=== PATIENT | female | born 1955 | race Caucasian/White ===

== ENCOUNTER 2025-03-17 19:29 | Observation (INO) | payer MEDICARE ==
[~2025-03-17] VITALS: Ht 170.2 cm; Wt 80.2 kg
[~2025-03-17 19:29] MED LIST: Lactated Ringer's 1,000 ML IV SCH
[2025-03-17 21:06] LABS: BASOPHILS ABSOLUTE AUTO 0.03 K/mm3 (0.00-0.23); BASOPHILS PERCENT AUTO 0 % (0-2); EOSINOPHILS PERCENT AUTO 0 % (0-6); Hematocrit 34.7 % (33.0-51.0); Hemoglobin 11.8 g/dL (11.5-16.0); IMMATURE GRAN ABSOLUTE AUTO 0.08 K/mm3 (0.00-0.10); IMMATURE GRAN PERCENT AUTO 0 % (0-1); LYMPHOCYTES ABSOLUTE AUTO 1.04 K/mm3 (0.84-5.20); LYMPHOCYTES PERCENT AUTO 6 % (21-46); MONOCYTES ABSOLUTE AUTO 0.91 K/mm3 (0.16-1.47); MONOCYTES PERCENT AUTO 5 % (4-13); Mean Corpuscular HGB 32.8 pg (26.0-34.0); Mean Corpuscular Volume 96 fL (80-100); Mean Platelet Volume 11.1 fL (9.1-12.4); NEUTROPHILS ABSOLUTE AUTO 15.86 K/mm3 (1.96-9.15); NEUTROPHILS PERCENT AUTO 89 % (41-73); Platelet Count 172 K/mm3 (150-400); RDW Coefficient Variation 12.8 % (11.7-14.2); RDW Standard Deviation 45.1 fL (35.1-46.3); White Blood Cell Count 17.92 K/mm3 (4.00-11.30)
[2025-03-17 21:26] LABS: Albumin, Blood 3.4 g/dL (3.4-5.0); Albumin/Globulin Ratio 1.1 (0.8-1.8); Bilirubin, Total 0.5 mg/dL (0.1-1.0); Bun/Creatinine Ratio 25.2 (12.0-20.0); Calcium, Blood 8.8 mg/dL (8.5-10.1); Creatinine, Blood 0.63 mg/dL (0.40-1.00); Globulin, Blood 3.2 g/dL (2.2-4.0); Potassium, Blood 3.4 mmol/L (3.5-5.5); Total Protein, Blood 6.6 g/dL (6.4-8.2)
[2025-03-17] MEDS ORDERED: Ciprofloxacin 200MG/100ML 100 ML IV ONE (22:30)
[2025-03-17] MEDS ORDERED: MetroNIDAZOLE 500MG/NS 100 ml 100 ML IV ONE (22:30)
[2025-03-17] MEDS ORDERED: Ketorolac Tromethamine 15mg Vial IV ONE (22:40)
[2025-03-17] MEDS ORDERED: Ciprofloxacin 400MG/D5 200ML 200 ML IV STA (22:43)
[2025-03-17] MEDS ORDERED: Ondansetron HCl 2 MG / ML 2ML Vial IV ONE (23:20)
[2025-03-17] MEDS ORDERED: Naloxone HCl 0.4MG / ML 1ML Vial IV PRN (23:45)
[2025-03-17] MEDS ORDERED: Acetaminophen 325 MG TABLET PO PRN (23:45)
[2025-03-17] MEDS ORDERED: Morphine Sulfate 4 MG/1 ML Injection IV PRN (23:45)
[2025-03-17] MEDS ORDERED: Ondansetron 4 MG TAB PO PRN (23:45)
[2025-03-17] MEDS ORDERED: OxyCODONE HCL 5 MG TAB PO PRN (23:45)
[2025-03-18] VITALS (12 sets, daily range): BP systolic 96–116; BP diastolic 59–74
[2025-03-18 00:15] LABS: Magnesium, Blood 1.7 mg/dL (1.6-2.4)
[2025-03-18] MEDS ORDERED: Potassium Chloride 40 MEQ in NS 250 ML IV ONE (00:25)
[2025-03-18] MEDS ORDERED: Ampicillin Sod/Sulbactam Sod 3 GM in NS 100 ML IV SCH (00:32)
[2025-03-18] MEDS ORDERED: NS 1,000 ML IV SCH (00:40)
[2025-03-18] MEDS ORDERED: RIZATRIPTAN1014 PO (01:31)
--- NOTE | 2025-03-18 02:00 | NUR ---
ADMISSION TO UNIT PT ARRIVED VIA GURNEY WITH ED STAFF. PT AMBULATED TO BED WITH STANDBY ASSIST FOR CORDS. PT ORIENTED TO UNIT AND ASSESSMENT COMPLETED. PT HAS R FLANK PAIN WITH REPORT OF DECREASE SINCE ARRIVAL. PT RIGHT ARM HAS NO PAIN/ITCHING AND HAS SLIGHT REDNESS AT DISTAL PORTION OF RIGHT ARM/HAND. PT OTHERWISE DENIES ALLERGIC REACTION SYMPTOMS. CALL LIGHT WITHIN REACH, PT RESTING WITH NO APPARENT DISTRESS.
[2025-03-18] MEDS ORDERED: [UNRECOGNIZED DRUG - OTHER] TOP ×2 (02:38→02:39)
[2025-03-18 05:34] LABS: BASOPHILS ABSOLUTE AUTO 0.02 K/mm3 (0.00-0.23); BASOPHILS PERCENT AUTO 0 % (0-2); EOSINOPHILS ABSOLUTE AUTO 0.02 K/mm3 (0.00-0.68); EOSINOPHILS PERCENT AUTO 0 % (0-6); Hematocrit 31.5 % (33.0-51.0); Hemoglobin 10.5 g/dL (11.5-16.0); IMMATURE GRAN ABSOLUTE AUTO 0.06 K/mm3 (0.00-0.10); IMMATURE GRAN PERCENT AUTO 1 % (0-1); LYMPHOCYTES ABSOLUTE AUTO 1.09 K/mm3 (0.84-5.20); LYMPHOCYTES PERCENT AUTO 9 % (21-46); MONOCYTES PERCENT AUTO 6 % (4-13); Mean Corpuscular HGB 32.4 pg (26.0-34.0); Mean Corpuscular HGB Conc 33.3 g/dL (31.5-36.5); Mean Corpuscular Volume 97 fL (80-100); Mean Platelet Volume 11.4 fL (9.1-12.4); NEUTROPHILS ABSOLUTE AUTO 10.67 K/mm3 (1.96-9.15); NEUTROPHILS PERCENT AUTO 85 % (41-73); Platelet Count 146 K/mm3 (150-400); RDW Coefficient Variation 12.8 % (11.7-14.2); RDW Standard Deviation 45.4 fL (35.1-46.3); Red Blood Cell Count 3.24 M/mm3 (3.80-5.20); White Blood Cell Count 12.56 K/mm3 (4.00-11.30)
[2025-03-18 05:56] LABS: Albumin/Globulin Ratio 1.2 (0.8-1.8); Bilirubin, Total 0.5 mg/dL (0.1-1.0); Bun/Creatinine Ratio 22.8 (12.0-20.0); Calcium, Blood 8.2 mg/dL (8.5-10.1); Creatinine, Blood 0.7 mg/dL (0.40-1.00); Globulin, Blood 2.5 g/dL (2.2-4.0); Potassium, Blood 3.5 mmol/L (3.5-5.5); Total Protein, Blood 5.5 g/dL (6.4-8.2)
--- NOTE | 2025-03-18 06:05 | NUR ---
SHIFT SUMMARY: PT A&OX4 AND AMBULATES INDEPENDENTLY. PT WITH 2 DAYS OF DECREASED URINE OUTPUT AND RIGHT FLANK PAIN. POTASSIUM REPLACED VIA IV X1. PT WITH NO ACUTE EVENTS DURING SHIFT AFTER ADMISSION. PT RIGHT ARM WITH NO COMPLAINTS AT THIS TIME AFTER CIPRO REACTION. PT NPO.
[2025-03-18] MEDS ORDERED: MetroNIDAZOLE 500MG/NS 100 ml 100 ML IV SCH (08:00)
[2025-03-18] MEDS ORDERED: Ciprofloxacin 400MG/D5 200ML 200 ML IV SCH (09:00)
[2025-03-18] MEDS ORDERED: Lactobacil 2-S.Thermo-Bifido 1 1 Cap PO SCH (09:00)
[2025-03-18] MEDS ORDERED: Docusate Sodium 100 MG Cap PO SCH (09:00)
[2025-03-18] MEDS ORDERED: Bupivacaine 0.25% Epi 1:200000 30 ML Vial ONE (10:04)
[2025-03-18] MEDS ORDERED: FentaNYL Citrate 50 MCG/ML 2 ML Injection ONE ×2 (10:38→11:04)
[2025-03-18] MEDS ORDERED: Midazolam HCl 1MG / ML 2ML Vial ONE (10:38)
[2025-03-18] MEDS ORDERED: propofoL 20 ML IV ONE ×2 (10:38→11:26)
[2025-03-18] MEDS ORDERED: Rocuronium Bromide 10 MG/ML 5ML Injection IV ONE (10:38)
[2025-03-18] MEDS ORDERED: Sugammadex Sodium 200 MG/2ML SDV (100 MG/ML) ONE (10:38)
[2025-03-18] MEDS ORDERED: Dexamethasone Sod Phos 10 MG/ML 1ML VIAL ONE (10:53)
[2025-03-18] MEDS ORDERED: Ondansetron HCl 2 MG / ML 2ML Vial ONE (11:18)
[2025-03-18] MEDS ORDERED: Ketorolac Tromethamine 30mg Vial ONE (11:19)
[2025-03-18] MEDS ORDERED: HYDROmorphone HCl/Pf 1MG SYR IV PRN ×2 (11:25→11:30)
[2025-03-18] MEDS ORDERED: FentaNYL Citrate 50 MCG/ML 2 ML Injection IV PRN ×2 (11:25→11:30)
[2025-03-18] MEDS ORDERED: Ondansetron HCl 2 MG / ML 2ML Vial IV PRN (11:25)
[2025-03-18] MEDS ORDERED: HYDROmorphone HCl/Pf 1MG SYR ONE (11:28)
--- NOTE | 2025-03-18 12:15 | NUR ---
POST OP RETURN TO SURGICAL UNIT VIA [facility], SLID TO HOSPITAL BED FROM [facility]. DROWSY BUT RESPONDS APPROP. LUNGS CLEAR. WILL REPLACE TELE WHEN BOX IS RETURNED FROM PACU. HRR. ABD SOFT w/ LAP SITES x 3. WOUND GLUE TO COVER; NO DRNG. DENIES PAIN OR N/V. WATER GIVEN.
[2025-03-18] MEDS ORDERED: PROBIOTIC ACID1 EAC8 PO (17:48)
[2025-03-18] MEDS ORDERED: AMOCLA875 PO (17:49)
[2025-03-18] MEDS ORDERED: OXYC5 PO (17:49)
--- NOTE | 2025-03-18 18:43 | NUR ---
DISCHARGE SUMMARY PAIN CONTROLLED WELL, DENIES NAUSEA AND TOLERATING DIET. INCISION SITES WNL, ABDOMEN SOFT. VSS. VOIDED SUCCESSFULLY. DISCHARGE INSTRUCTIONS GIVEN. ESCORTED OUT VIA WC.
== END 2025-03-18 18:45 | disposition home or self-care (01) ==
LOC: ER 19:29 → SURS 19:30
PROVIDERS: Physician Assistant; Surgery; ADMIT Student in an Organized Health Care Education/Training Program
PROC: 0DTJ0ZZ Resection of Appendix, Open Approach (ICD-10-PCS; principal; 2025-03-18 10:30)
DX: K35.891 Other acute appendicitis without perforation, with gangrene (principal)
CPT/HCPCS: 36415; 74177; 80053; 83605; 83735; 85025; 87040; 88304; 93005; 93010; 96365-59; 96366; 96367; 96368; 96375; 99285-25; G0378; J0295; J0744; J1100; J1171; J1885; J2250; J2405; J2704; J3010; J3480; J7030; J7050; J7120; Q9967

== ENCOUNTER 2025-09-09 06:16 | Day surgery (SDC) | payer MEDICARE ==
[~2025-09-09] VITALS: Ht 167.6 cm; Wt 77.9 kg
[~2025-09-09 06:16] MED LIST changes: +AMOCLA875 PO; +Balanced Salt Epinephrine Irrigation Solution 500 mL IR SCH; -Lactated Ringer's 1,000 ML IV SCH; +OXYC5 PO; +Ondansetron 4 MG SoluTab MM PRN; +PHENYLEPHRINE\\TROPICAMIDE\\TETRACAINE OPHTHALMIC DILATING SOLN RIGHTEYE PRN; +PROBIOTIC ACID1 EAC8 PO; +Povidone-Iodine 450 DROP/30 ML Solution ONE; +Povidone-Iodine 450 DROP/30 ML Solution RIGHTEYE SCH; +RIZATRIPTAN1014 PO; +Tetracaine HCl/Pf 0.5% Opth Soln 4 ml ONE; +[UNRECOGNIZED DRUG - OTHER] TOP
--- NOTE | 2025-09-09 06:32 | NUR ---
09/09/25 0632 Chapin Miranda CALL LIGHT WITHIN REACH. PT ON CONTINOUS PULSE OXIMETER FOR CLOSE MONITORING. EYE DROPS IN RIGHT EYE AROUND 0630
[2025-09-09] MEDS ORDERED: Moxifloxacin HCL 0.5 MG/0.1 ML 0.4MLSYR RIGHTEYE ONE (07:34)
--- NOTE | 2025-09-09 07:37 | NUR ---
09/09/25 0737 Marguerite Painter 0730 BP:116/74 HR:66 O2:98% RESP:16
[2025-09-09 07:52] VITALS: BP 118/77
== END 2025-09-09 08:03 | disposition home or self-care (01) ==
LOC: ORSCSDS 06:16
PROVIDERS: Student in an Organized Health Care Education/Training Program
PROC: 08RJ3JZ Replacement of Right Lens with Synthetic Substitute, Percutaneous Approach (ICD-10-PCS; principal; 2025-09-09 07:30)
DX: H25.813 Combined forms of age-related cataract, bilateral (principal); H52.201 Unspecified astigmatism, right eye
CPT/HCPCS: A9270; J2003; V2632

== ENCOUNTER 2025-09-16 12:17 | Day surgery (SDC) | payer MEDICARE ==
[~2025-09-16] VITALS: Ht 167.6 cm; Wt 77.0 kg
[~2025-09-16 12:17] MED LIST changes: +Moxifloxacin HCL 0.5 MG/0.1 ML 0.4MLSYR LEFTEYE SCH; +PHENYLEPHRINE\\TROPICAMIDE\\TETRACAINE OPHTHALMIC DILATING SOLN LEFTEYE PRN; -PHENYLEPHRINE\\TROPICAMIDE\\TETRACAINE OPHTHALMIC DILATING SOLN RIGHTEYE PRN; +Povidone-Iodine 450 DROP/30 ML Solution LEFTEYE SCH; -Povidone-Iodine 450 DROP/30 ML Solution RIGHTEYE SCH
--- NOTE | 2025-09-16 12:31 | NUR ---
09/16/25 1231 Chapin Miranda CALL LIGHT WITHIN REACH. EYE DROPS IN AROUND 1228. PT ON CONTINOUS PULSE OXIMETER FOR MONITORING
[2025-09-16] MEDS ORDERED: Tetracaine HCl 0.5% Opth Soln 15 ml LEFTEYE ONE (12:55)
--- NOTE | 2025-09-16 12:56 | NUR ---
09/16/25 1256 Lorraine Guzman 66 HR 98% 02 18 RR 106/74 BP
[2025-09-16 13:16] VITALS: BP 119/70
== END 2025-09-16 13:27 | disposition home or self-care (01) ==
LOC: ORSCSDS 12:17
PROVIDERS: Student in an Organized Health Care Education/Training Program
PROC: 08RK3JZ Replacement of Left Lens with Synthetic Substitute, Percutaneous Approach (ICD-10-PCS; principal; 2025-09-16 13:30)
DX: H25.812 Combined forms of age-related cataract, left eye (principal); Z96.1 Presence of intraocular lens; H52.202 Unspecified astigmatism, left eye
CPT/HCPCS: A9270; V2632